=== PATIENT | male | born 1955 | race African-American/Black ===

== ENCOUNTER 2024-01-03 10:47 | Outpatient (AMB) | payer OTHER, SELFPAY ==
--- NOTE | 2024-01-03 11:14 | HO.SPINEOV ---
Intake Visit Reasons: chronic back pain Intake Note: Mr. Dickinson is here today c/o Back pain. 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 He has a 68-year-old diabetic gentleman presents to the office today for evaluation of a lumbar radiculopathy that started well over a decade ago. The symptoms start in his right hip go down into his right posterolateral thigh and into his right calf. Will occasionally get numbness in the top of his foot. At that time it appears as though he had a herniated disc and he tells me that the pain was manageable. He saw Dr. Sandoval at [facility], and saw Sheridan CHEEMA at our office a few years ago. At that time we did not see much in the way of imaging findings that would lead us to believe surgery would be helpful. It was recommended he try conservative treatment. He has been doing exercises, stretching. He has not done any cortisone injections into his low back. He did have 1 in his ankle at 1 point but it was temporary and so he has not really all that interested in pursuing those. The leg pain is present throughout his life 24 hours 7 days a week. It does get aggravated with activity but does not necessarily go away completely when he sits down but does improve. He does get the pain at night. He takes Tylenol throughout the day. He can take ibuprofen but he has a history of gastritis so it is limited how much she can take it. He is here today to be evaluated for surgery with an MRI showing degenerative disc disease at L4-5. PMH: He does not see his regular doctor much, he is a diabetic and from the [facility] records I see his A1c done about a month ago was at 6.9 but he takes no diabetic medications. He tells me he drinks juices throughout the day to help with his health. He has hypertension as well but does not take any antihypertensives. His [facility] records state he has a history of GERD, irritable bowel syndrome, constipation, carpal tunnel, patent foramen ovale and history of stroke. The patient tells me he never had a stroke and was misdiagnosed at the time. Social hx: He does not smoke, drink use any recreational drugs Medications: Takes no medications other than Tylenol Allergies: None Physical exam: Patient is awake alert oriented no acute distress, he has positive straight leg raise at about 20-30 degrees in the right leg. His motor exam is normal. He has an antalgic gait. Imaging review: I reviewed his MRIs all done at [facility] I can see them in 2010 he had what looked like a herniated disc at the time causing compression of the right L5 nerve root displacing it posteriorly. He has a series of MRI imaging of his low back done in 2014 and 2 or 3 after that. The last 1 in 2023. It looks like the herniated disc has resolved and there is some very mild narrowing of the lateral recess but no overt compression. I can see from an x-ray that was done in the [facility] system that he has a right-sided collapse of the disc space which has been getting progressively worse. Impression: 60-year-old male presents to the office today for evaluation of a right L5 radiculopathy. It appears though he had a herniated disc on his imaging in 2010 and that has resolved. I can see over the years and subsequent imaging that he is getting collapse of the right side of the disc space, best seen on the AP view of the lumbar x-ray done just this year. They are 2 possibilities that he is dealing with here. The 1st is that he has a nerve injury related to the original herniated disc and that may just be a long-term side effects of the disc herniation that will never go away. The 2nd possibility is that he has occult compression of the L5 nerve in an upright position as suggested by description of the symptoms getting worse when he stands and if he tries to walk for any length of time. I can get upright flexion-extension x-rays to see if this is the case. Once the x-rays are completed I will review everything with Dr. Camacho to see if he has any thoughts as to whether he would be a surgical candidate. Thank you for allowing us to care for your patient. The total time spent with this visit with this patient was 45 minutes reviewing history, physical exam, lumbar imaging review, and implementation of treatment plan or further diagnostic testing Balwinder Camacho MD,PhD [facility] Orders: Orders XR lumbar spine 4V min Today M54.16 - Radiculopathy, lumbar region Coding Level of Care Code New Pt Level 4 (72358) Diagnoses Lumbar radiculopathy M54.16
== END 2024-01-03 12:00 | disposition home or self-care (01) ==
PROVIDERS: PCP Internal Medicine; Referring Provider Physician Assistant; Visit Provider Physician Assistant
DX: M54.16 Radiculopathy, lumbar region (principal)
CPT/HCPCS: 99204

== ENCOUNTER → 2024-01-03 10:47 | Outpatient (BNVA) | payer OTHER, SELFPAY | PROVIDERS: PCP Internal Medicine; Visit Provider Physician Assistant | DX: M54.16 Radiculopathy, lumbar region (principal) | CPT/HCPCS: 99202 ==